=== PATIENT | male | born 1955 | race Caucasian/White ===

== ENCOUNTER 2024-07-10 03:21 | Emergency (ER) | payer BC, OTHER ==
[~2024-07-10] VITALS: Ht 188 cm; Wt 92.1 kg
[2024-07-10 03:58] LABS: APPEARANCE,URINE CLOUDY (CLEAR); BILIRUBIN,URINE 1+ (NEGATIVE); BLOOD, URINE 3+ Ery/uL (NEGATIVE); KETONES,URINE NEGATIVE (NEGATIVE); LEUKOCYTE ESTERASE ,URINE TRACE (NEGATIVE); NITRITE, URINE POSITIVE (NEGATIVE); PROTEIN,URINE 2+ mg/dl (NEGATIVE); UGLUCOSE TRACE mg/dL (NEGATIVE)
[2024-07-10 04:10] LABS: COLOR,URINE AMBER (YELLOW)
[2024-07-10 04:12] LABS: ADD URINE CULTURE YES; RBC,URINE TOO NUMEROUS TO COUN /HPF (0-2)
[2024-07-10 04:13] LABS: BACTERIA,URINE Moderate /HPF (None Seen)
[2024-07-10 04:14] LABS: SQUAMOUS EPITHELIAL CELL,UR Few /HPF (None Seen)
[2024-07-10] MEDS ORDERED: CIPR-262 PO (04:25)
[2024-07-10] MEDS ORDERED: CIPROFLOXACIN HCL 500 MG TABLET ONE (04:41)
[2024-07-10] MEDS: CIPROFLOXACIN HCL 500 MG TABLET PO ONE (04:45)
[2024-07-10 05:08] VITALS: BP 165/91; TEMP 98.1; O2SAT 98
== END 2024-07-10 05:56 | disposition home or self-care (01) ==
LOC: ER 03:33
DX: R33.9 Retention of urine, unspecified (principal); I10 Essential (primary) hypertension
CPT/HCPCS: 81001; 87086-TC